=== PATIENT | male | born 1990 | race Caucasian/White ===

== ENCOUNTER 2018-10-05 15:22 | Outpatient (CLI) | payer MEDICAID, SELFPAY ==
[2018-10-05 17:48] LABS: CREATININE 0.98 mg/dL (0.70-1.30); Cholesterol 268 mg/dL (50-200); HDL Cholesterol 31 mg/dL (40-60); LDL CHOLESTEROL 199 mg/dL (<100); Triglyceride 245 mg/dL (30-150)
[2018-10-05 19:15] LABS: Hemoglobin A1C 11.3 % (4.5-6.2)
[2018-10-20 12:20] LABS: ZnT8 Antibodies <15.0 U/mL (<15.0)
== END 2018-10-05 15:42 ==
PROVIDERS: PCP Family Medicine; Visit Provider Family Medicine
DX: E10.9 Type 1 diabetes mellitus without complications (principal)
CPT/HCPCS: 36415; 80061; 83721; 86337; 86341; 82565; 83036

== ENCOUNTER 2018-11-13 15:18 | Outpatient (CLI) | payer MEDICAID, SELFPAY ==
[2018-11-13 16:03] LABS: Cholesterol 263 mg/dL (50-200); HDL Cholesterol 37 mg/dL (40-60); LDL CHOLESTEROL 187 mg/dL (<100); Triglyceride 233 mg/dL (30-150)
== END 2018-11-13 15:38 ==
PROVIDERS: PCP Family Medicine; Visit Provider Family Medicine
DX: E78.5 Hyperlipidemia, unspecified (principal)
CPT/HCPCS: 36415; 80061; 83721

== ENCOUNTER 2019-02-10 08:47 | Outpatient (CLI) | payer MEDICAID, SELFPAY ==
[2019-02-10 11:05] LABS: CREATININE 1.07 mg/dL (0.70-1.30)
[2019-02-10 11:31] LABS: Hemoglobin A1C 6.2 % (4.5-6.2)
[2019-02-10 12:38] LABS: COMMENT (LAB VIEW ONLY) 216.32 mg/dL; Microalb ug/mg Crea 9.3 ug/mg Cr
== END 2019-02-10 09:07 ==
PROVIDERS: PCP Family Medicine; Visit Provider Family Medicine
DX: R35.0 Frequency of micturition (principal); E11.9 Type 2 diabetes mellitus without complications
CPT/HCPCS: 36415; 82043; 82565; 82570; 83036

== ENCOUNTER 2019-02-17 14:45 | Outpatient (CLI) | payer MEDICAID, SELFPAY ==
--- NOTE | 2019-02-17 15:29 | DI.US_ITS ---
SYMPTOMS/DIAGNOSIS: URINARY FREQUENCY, R35.0 RENAL ULTRASOUND: The left kidney measures 13.6 cm in length. The right kidney measures 12.5 cm in length. There is no evidence of hydronephrosis, mass or nephrolithiasis. The prevoid bladder volume measured 171 cc's. There is no postvoid residual. Both ureteral jets were visualized. The bladder appeared normal. The prostate is normal in size. IMPRESSION: Negative renal ultrasound.
== END 2019-02-17 15:05 ==
PROVIDERS: PCP Family Medicine; Visit Provider Family Medicine
DX: R35.0 Frequency of micturition (principal)
CPT/HCPCS: 76770

== ENCOUNTER 2019-05-11 08:44 | Outpatient (CLI) | payer MEDICAID, SELFPAY ==
[2019-05-11 11:27] LABS: Calculated LDL 82; Cholesterol 143 mg/dL (50-200); HDL Cholesterol 38 mg/dL (40-60); Triglyceride 115 mg/dL (30-150)
[2019-05-11 12:13] LABS: Hemoglobin A1C 6.2 % (4.5-6.2)
== END 2019-05-11 09:04 ==
PROVIDERS: PCP Family Medicine; Visit Provider Family Medicine
DX: E11.9 Type 2 diabetes mellitus without complications (principal)
CPT/HCPCS: 36415; 80061; 83721; 83036

== ENCOUNTER 2019-10-05 10:04 | Outpatient (CLI) | payer MEDICAID, SELFPAY ==
[2019-10-05 12:14] LABS: Hemoglobin A1C 6.6 % (4.5-6.2)
== END 2019-10-05 10:24 ==
PROVIDERS: PCP Family Medicine; Visit Provider Family Medicine
DX: E11.9 Type 2 diabetes mellitus without complications (principal)
CPT/HCPCS: 36415; 83036

== ENCOUNTER 2020-07-06 20:51 | Emergency (ER) | payer MEDICAID, SELFPAY ==
[2020-07-06 20:54] VITALS: BP 151/104; PULSE 112; RESP 16; TEMP 36.4; O2SAT 98
--- NOTE | 2020-07-06 20:55 | ED.GENADUL_ITS ---
Discharge Plan Disposition Patient Disposition: HOME Condition: Good Discharge Details Chief Complaint: RashLesion Clinical Impression: Lump of skin of back Primary Care Provider: Sorin Brown ED Provider: Forrest Chun Home Meds and New Rx's Prescriptions: Continued Lantus Solostar U-100 Insulin 100 unit/mL (3 mL) insulin pen 10 unit SC DAILY Qty: 15 RF: 3 (DME) pen needle, diabetic [1st Tier Unifine Pentips] 31 gauge x 1/4 needle See Dose Instructions .ROUTE .MEDSUPPLY Qty: 100 RF: 3 (DME) blood-glucose meter [Accu-Chek Susanna Plus Meter] misc See Dose Instructions .ROUTE .MEDSUPPLY Qty: 1 RF: 0 (DME) Accu-Chek Susanna Plus test strp strip See Dose Instructions .ROUTE .MEDSUPPLY Qty: 100 RF: 11 (DME) lancets [Accu-Chek Fastclix Lancet Drum] misc See Dose Instructions .ROUTE .MEDSUPPLY Qty: 100 RF: 5 rosuvastatin 10 mg tablet 10 mg PO DAILY Qty: 90 RF: 3 methylphenidate HCl 27 mg tablet extended release 24hr 27 mg PO DAILY MDD 1 tablet Qty: 30 RF: 0 Discharge Instructions Additional Instructions: This would be best addressed by surgery to either biopsy or completely remove the lump. It does not appear to be infected at this point. If you develop fever, uncontrolled sugars, increasing redness/swelling/tenderness you should return to ED. Referrals: [facility] [Provider Group] Discharge Data Discharge Date/Time-TO BE ENTERED AT DEPARTURE: 07/06/20 21:25 Medical Decision Making Patient presenting with lump to the right upper back which he reports has grown significantly in the last few weeks and is now painful. Has been present for years. No associated erythema, warmth, drainage. No fever. Sugars have been well controlled. This does not appear to be infected. It is firm and rubbery not fluctuant. Differential includes cyst versus lymph node, less likely lipoma given consistency. Best to be evaluated and managed by surgery. Patient should return if he develops signs of infection, fever, uncontrolled sugars. Otherwise we will have care management help arrange follow-up with surgery next week. HPI General Mode of arrival: ambulatory . Date/Time Provider Initiated Documentation: 07/06/20 20:55 . Limitations to Documentation: no limitations . Information obtained by: patient . HPI Narrative: Patient presents to ED with a lump in his upper back which has been present for years but in the last few weeks has grown considerably and is hard and painful. He denies fever. Sugars have been under control. There has been no warmth or redness to the area. He reports that a few years ago a friend lanced it for him. It has not been evaluated by a medical provider. Related Data Home Medications Medication Instructions Recorded Confirmed blood sugar diagnostic #100 each 10/04/18 11/11/19 blood-glucose meter #1 each 10/04/18 11/11/19 lancets #100 each 10/05/18 11/11/19 rosuvastatin 10 mg tablet 10 mg PO DAILY #90 tab 01/06/20 07/06/20 insulin glargine 100 unit/mL (3 10 unit SC DAILY #15 ml 01/11/20 07/06/20 mL) subcutaneous pen pen needle, diabetic 31 gauge x #100 each 01/11/20 01/11/2011/27 methylphenidate HCl 27 mg 27 mg PO DAILY #30 tab MDD 1 tablet 06/20/20 07/06/20 tablet,extended release 24 hr Previous Rx's Medication Instructions Recorded blood sugar diagnostic #100 each 10/04/18 blood-glucose meter #1 each 10/04/18 lancets #100 each 10/05/18 rosuvastatin 10 mg tablet 10 mg PO DAILY #90 tab 01/06/20 insulin glargine 100 unit/mL (3 10 unit SC DAILY #15 ml 01/11/20 mL) subcutaneous pen pen needle, diabetic 31 gauge x #100 each 01/11/20/ methylphenidate HCl 27 mg 27 mg PO DAILY #30 tab MDD 1 tablet 06/20/20 tablet,extended release 24 hr Allergies Allergy/AdvReac Type Severity Reaction Status Date / Time venlafaxine [From Effexor] AdvReac Severe nauseated Verified 07/06/20 20:56 hydrocodone bitartrate AdvReac Intermediate VOMITING Unverified 07/06/20 20:56 [From Vicodin] morphine AdvReac Intermediate Nausea Unverified 07/06/20 20:56 Review of Systems Constitutional Constitutional: Denies chills and Denies fever(s) Cardiovascular Cardiovascular: Denies dyspnea Respiratory Respiratory: Denies cough and Denies dyspnea Integumentary/Breasts Skin/Breast: Denies erythema, Denies rash, Denies skin ulcer, Denies sores and Denies wounds [facility] Medical History (Updated 07/06/20 @ 21:37 by Forrest Chun MD) ADHD (attention deficit hyperactivity disorder) (Chronic) Diabetes mellitus (Chronic) Surgical History History of surgical procedure (Acute) TM surgery Family History (Updated 01/11/20 @ 11:45 by Jim Pelayo) Mother Diabetes Father No problems noted. Sister Alcohol abuse Depression Brother Asthma Maternal Grandfather , age 60 Alcohol abuse Cancer Paternal Grandfather Diabetes Maternal Grandmother , age 59 Diabetes Asthma Paternal Grandmother No problems noted. Sister No problems noted. Sister No problems noted. Son No problems noted. Daughter No problems noted. 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 Pets and animals: Yes Pets and animals: cat(s) and dog(s) Sexually active: Yes Do you think of yourself as: straight/heterosexual Current gender identity: male What is your relationship status?: living with partner How often do you talk on the phone with friends or family?: twice per week How often do you get together with friends or relatives?: twice per week How often do you attend confucianist or faith services?: decline to answer Do you belong to any clubs or organized social groups?: yes Panel score (0-1 are the most socially isolated patients): 3 Duration: < 15 minutes/day Frequency: daily Lisa/Confucianism: None Special lisa needs: No Seatbelt use: always Drive intox or ride w/intox horse and wagon driver: No Do you feel safe at home: Yes Do you feel safe in your relationship?: Yes Exam Const General: cooperative, comfortable and no acute distress Orientation: alert and oriented x3 HENMT Head: normocephalic and atraumatic Neck Neck: full ROM, trachea midline and supple Skin General skin exam: no erythema, no fluctuance and no induration Other: Firm, rubbery golf ball size lump right upper back. Mildly tender.
[2020-07-06 20:57] VITALS: BP 138/93
--- NOTE | 2020-07-06 21:09 | NUR.NOTE ---
Nursing Note: rerferal given to cm to follow up with surgery ana dixon
--- NOTE | 2020-07-10 10:25 | PDOC.ERCMPRO ---
- If Service Date Differs Date of service: 07/10/20 Time of Service: 10:25 Care Management Progress Note At the request of ED provider, CM coordinates referral to [facility] General Surgery.
== END 2020-07-06 21:25 | disposition home or self-care (01) ==
PROVIDERS: Emergency Provider Emergency Medicine; PCP Family Medicine
DX: R22.2 Localized swelling, mass and lump, trunk (principal); E11.9 Type 2 diabetes mellitus without complications; Z79.4 Long term (current) use of insulin
CPT/HCPCS: 36416; 82962; 99282; 99283

== ENCOUNTER 2020-07-11 08:49 | Outpatient (CLI) | payer MEDICAID, SELFPAY ==
[2020-07-11 12:45] LABS: COMMENT (LAB VIEW ONLY) 190.64 mg/dL; Microalb ug/mg Crea 11.6 ug/mg Cr
[2020-07-11 12:49] LABS: CREATININE 0.99 mg/dL (0.70-1.30); Calculated LDL 109 mg/dL (<100); Cholesterol 178 mg/dL (<200); HDL Cholesterol 40 mg/dL (40-60); Triglyceride 148 mg/dL (<150)
[2020-07-11 14:32] LABS: Hemoglobin A1C 6.3 % (3.8-5.6)
== END 2020-07-11 09:09 ==
PROVIDERS: PCP Family Medicine; Visit Provider Family Medicine
DX: E11.9 Type 2 diabetes mellitus without complications (principal); E78.5 Hyperlipidemia, unspecified; R73.9 Hyperglycemia, unspecified
CPT/HCPCS: 36415; 80061; 82043; 82565; 82570; 83036

== ENCOUNTER 2021-11-14 13:31 | Outpatient (REF) | payer MEDICAID, SELFPAY ==
[2021-11-15 16:00] LABS: COVID-19 RT-PCR UVMMC Result Negative (Negative)
== END 2021-11-14 13:32 | disposition home or self-care (01) ==
LOC: LBN 13:31
PROVIDERS: PCP Family Medicine; Visit Provider Family Medicine
DX: Z20.822 Contact with and (suspected) exposure to COVID-19 (principal)
CPT/HCPCS: U0003

== ENCOUNTER 2022-07-13 16:18 | Emergency (ER) | payer MEDICAID, SELFPAY ==
[2022-07-13 16:22] VITALS: BP 142/92; PULSE 115; RESP 18; TEMP 38.4; O2SAT 99
[2022-07-13 16:43] LABS: Source Nasal/Nares
[2022-07-13] MEDS: Ibuprofen 600 MG TAB PO (16:45)
[2022-07-13 17:20] LABS: COVID-19 PCR Negative (Negative)
--- NOTE | 2022-07-13 18:11 | ED.GENADUL_ITS ---
Discharge Plan Disposition Patient Disposition: HOME Condition: Stable Discharge Details Clinical Impression: URI (upper respiratory infection), Pharyngitis Primary Care Provider: Sorin Brown ED Provider: Jenna Thornton Meds and New Rx's Prescriptions: New amoxicillin-pot clavulanate 875-125 mg tablet 1 tab PO BID 7 Days Qty: 14 0RF Rx Instructions: Take one tablet twice daily x 7 days Continued Lantus Solostar U-100 Insulin 100 unit/mL (3 mL) insulin pen 10 unit SC DAILY Qty: 15 3RF benzonatate [Tessalon Perles] 100 mg capsule 100 mg PO TID PRN (Reason: cough) Qty: 14 0RF albuterol sulfate [Proventil HFA] 90 mcg/actuation HFA aerosol inhaler 2 puff inhalation Q6H PRN (Reason: shortness of breath or wheezing) Qty: 8.5 0RF (DME) blood-glucose meter [Accu-Chek Susanna Plus Meter] misc See Dose Instructions .ROUTE .MEDSUPPLY Qty: 1 0RF Dose Instruction: As directed Rx Instructions: test 2-3 x/day (DME) Accu-Chek Susanna Plus test strp strip See Dose Instructions .ROUTE .MEDSUPPLY Qty: 100 11RF Dose Instruction: As directed Rx Instructions: test 2-3 x/day (DME) lancets [Accu-Chek Fastclix Lancet Drum] misc See Dose Instructions .ROUTE .MEDSUPPLY Qty: 100 5RF Dose Instruction: As directed Rx Instructions: 1-3 times/day rosuvastatin 10 mg tablet 10 mg PO DAILY Qty: 90 3RF (DME) pen needle, diabetic [1st Tier Unifine Pentips] 31 gauge x 1/4 needle See Dose Instructions .ROUTE .MEDSUPPLY Qty: 100 3RF Dose Instruction: As directed Rx Instructions: one injection daily Discharge Instructions Instructions: Pharyngitis (ED), Upper Respiratory Infection (ED) Additional Instructions: Take the antibiotic twice daily with yogurt for 7 days. Gargle with warm salt water 3 times daily. Please take Tylenol or Ibuprofen with food every 4-6 hours as needed for pain and swelling. Follow up with primary care provider in 3-5 days. Return to ED sooner if any worsening or concerns. Increase oral fluids. Referrals: Sorin Brown MD [Primary Care Provider] - 1 week Discharge Data Discharge Date/Time-TO BE ENTERED AT DEPARTURE: 07/13/22 18:35 HPI General Mode of arrival: ambulatory . Date/Time Provider Initiated Documentation: 07/13/22 16:18 . Limitations to Documentation: no limitations . Information obtained by: patient, RN notes reviewed and old records reviewed . HPI Narrative: 55-bjlg-teo-year-old male presents to the ER with chief complaint of fever, sore throat body ache which began this morning. Does have a past medical history of diabetes, obesity and ADHD. States she has been taking a lot of Tylenol today. Denies any cough or any other associated symptoms. Denies any abdominal pain nausea vomiting diarrhea. Related Data Home Medications Medication Instructions Recorded Confirmed blood sugar diagnostic (Accu-Chek #100 ea 10/04/18 05/01/22 Susanna Plus test strips) blood-glucose meter (Accu-Chek #1 ea 10/04/18 05/01/22 Susanna Plus Meter) lancets (Accu-Chek Fastclix Lancet #100 ea 10/05/18 05/01/22 Drum) insulin glargine 100 unit/mL (3 10 unit (0.1 mL) subcut DAILY #15 07/11/20 05/01/22 mL) subcutaneous pen (Lantus mL Solostar U-100 Insulin) rosuvastatin 10 mg tablet 10 mg PO DAILY #90 tabs 09/25/20 05/01/22 pen needle, diabetic 31 gauge x #100 ea 08/02/21 05/01/22/ (1st Tier Unifine Pentips) albuterol sulfate 90 mcg/actuation 2 puff inhalation Q6H PRN 05/01/22 07/13/22 aerosol inhaler (Proventil HFA) shortness of breath or wheezing #8.5 grams benzonatate 100 mg capsule 100 mg PO TID PRN cough #14 caps 05/01/22 05/01/22 (Jb Nieto) amoxicillin 875 mg-potassium 1 tab PO BID 7 days #14 tabs 07/13/22 clavulanate 125 mg tablet Previous Rx's Medication Instructions Recorded blood sugar diagnostic (Accu-Chek #100 ea 10/04/18 Susanna Plus test strips) blood-glucose meter (Accu-Chek #1 ea 10/04/18 Susanna Plus Meter) lancets (Accu-Chek Fastclix Lancet #100 ea 10/05/18 Drum) insulin glargine 100 unit/mL (3 10 unit (0.1 mL) subcut DAILY #15 07/11/20 mL) subcutaneous pen (Lantus mL Solostar U-100 Insulin) rosuvastatin 10 mg tablet 10 mg PO DAILY #90 tabs 09/25/20 pen needle, diabetic 31 gauge x #100 ea 08/02/2111/27 (1st Tier Unifine Pentips) albuterol sulfate 90 mcg/actuation 2 puff inhalation Q6H PRN 05/01/22 aerosol inhaler (Proventil HFA) shortness of breath or wheezing #8.5 grams benzonatate 100 mg capsule 100 mg PO TID PRN cough #14 caps 05/01/22 (Tesarturo Nieto) amoxicillin 875 mg-potassium 1 tab PO BID 7 days #14 tabs 07/13/22 clavulanate 125 mg tablet Allergies Allergy/AdvReac Type Severity Reaction Status Date / Time venlafaxine [From Effexor] AdvReac Severe nauseated Verified 05/01/22 15:41 hydrocodone bitartrate AdvReac Intermediate VOMITING Verified 05/01/22 15:41 [From Vicodin] morphine AdvReac Intermediate Nausea Verified 05/01/22 15:41 General Stated Complaint: RespSymp AMAN: 3 Review of Systems All systems reviewed & are unremarkable except as noted in HPI and below Constitutional Constitutional: Reports as per HPI, Reports body ache(s), Reports fatigue and Reports fever(s) ENT Ears, Nose, Mouth, and Throat: Reports sore throat Endocrine Endocrine: Reports fatigue PFSH All Active Problems (Updated 07/13/22 @ 18:15 by Jenna Thornton NP) Pharyngitis (Acute) URI (upper respiratory infection) (Acute) Infected sebaceous cyst (Acute) Bilateral foot pain (Acute) Depression (Chronic) add effexor follow up in one month Diabetes 1.5, 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 Sister Alcohol abuse Depression Brother Asthma Maternal Grandfather , age 60 Alcohol abuse Cancer Paternal Grandfather Diabetes Maternal Grandmother , age 59 Diabetes Asthma Paternal Grandmother No problems noted. Sister No problems noted. Sister No problems noted. Son No problems noted. Daughter No problems noted. 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 Pets and animals: Yes Pets and animals: cat(s) and dog(s) Sexually active: Yes Do you think of yourself as: straight/heterosexual Current gender identity: male What is your relationship status?: living with partner How often do you talk on the phone with friends or family?: twice per week How often do you get together with friends or relatives?: twice per week How often do you attend orthodoxy or tenriism services?: decline to answer Do you belong to any clubs or organized social groups?: yes Panel score (0-1 are the most socially isolated patients): 3 Duration: < 15 minutes/day Frequency: does not exercise Lisa/Anglican: No preference Special lisa needs: No Seatbelt use: always Drive intox or ride w/intox front end loader driver: No Do you feel safe at home: Yes Do you feel safe in your relationship?: Yes Exam Narrative Exam Narrative: Constitutional: Alert and oriented x3. Appears stated age. Normal body habitus. Head: Normocephalic, no trauma. Eyes: Pupils PERRL, Red reflex noted, EOM's intact. Eyelids symmetrical without lesions, discharge, or swelling. ENT: Bilateral TM's WNL, External ear normal to inspection, no mastoid TTP, swelling, or erythema, Nasal turbinates WNL, no nasal discharge. Normal dentition, Posterior pharynx erythemic, no exudate. Chest: RRR, Normal S1, S2, distal pulses intact. Resp: Lungs clear to auscultation bilaterally, no wheezes, rales, or rhonchi. Abdomen: Soft, non-distended, Normoactive bowel sounds all 4 quads. Musculoskeletal: Normal gait, 5/5 strength to all four extremities. Skin: No suspicious rashes or lesions. Capillary refill less than 2 sec. Neurologic: Cranial nerves II-XII intact. Alert and oriented x 3. Motor: No deficits noted. Sensory: Intact bilaterally all 4 extremities. Reflexes: DTR's intact bilaterally.. Hematologic/Lymphatic: No ecchymosis, no lymphadenopathy. Course Vital Signs Vital signs: Vital Signs Temperature 38.4 C H 07/13/22 16:22 Pulse 115 H 07/13/22 16:22 Respiratory Rate 18 07/13/22 16:22 Blood Pressure 142/92 H 07/13/22 16:22 Pulse Oximetry 99 07/13/22 16:22 Temperature 38.4 C H 07/13/22 16:22 Temperature Source Oral 07/13/22 16:22 Pulse 115 H 07/13/22 16:22 Respiratory Rate 18 07/13/22 16:22 Respiratory Effort Non-Labored 07/13/22 16:40 Blood Pressure 142/92 H 07/13/22 16:22 Blood Pressure Position Sitting 07/13/22 16:22 Pulse Oximetry 99 07/13/22 16:22 Oxygen Delivery Method Room Air 07/13/22 16:22 Oxygen Flow Rate 0 07/13/22 16:22 Lab/Test Results Lab/Test Results: 07/13/22 16:35 Pharynx Group A Streptococcus Culture - Pending Laboratory Tests Range/Units 07/13/22 16:30 COVID-19 Source Nasal/Nares SARS-CoV-2 (PCR) (Negative) Negative POC Strep Test-RADHA(Rapid) Start: 07/13/22 16:29 Freq: .Rapid Strep Test Status: Active Protocol: Document 07/13/22 16:45 RM (Rec: 07/13/22 16:46 RM [id number]) Strep test-RADHA(Rapid)-POC POC-Strep test-RADHA (Rapid) Negative POC-Strep test-RADHA (Rapid) Negative PAWSS Have you Been Recently Intoxicated or Drunk Within the Last 30 days?: Yes Have you Ever Experienced Previous Episodes of Alcohol Withdrawal?: No Have you ever Experienced Withdrawal Seizures?: No Have you ever Experienced Delirium Tremens(DT)s?: No Have you ever undergone Alcohol Rehabilitation Treatment (i.e, inpt ot outpatient treatment programs)?: No Have you ever Experienced Blackouts?: No Have you ever Combined Alcohol with other Downers within the last 90 days?: No Have you ever Combined Alcohol with any other Substance of Abuse during the last 90 days?: No Positive Blood Alcohol level on Presentation? [PCS.BAL]: No Evidence of Increased Autonomic Activity (i.e. HR>120, tremor, sweating, agitation, nausea)?: No Result: 1
[2022-07-13] MEDS: Amox. 875/Clav. 125, 2 TABS/BTL 1 TAB PO (18:30)
[2022-07-13] MEDS: Amoxicillin 875/Clav. 125 TAB PO (18:30)
== END 2022-07-13 18:35 | disposition home or self-care (01) ==
PROVIDERS: Emergency Provider Registered Nurse Emergency; PCP Family Medicine
DX: J02.9 Acute pharyngitis, unspecified (principal); E11.9 Type 2 diabetes mellitus without complications; Z20.822 Contact with and (suspected) exposure to COVID-19
CPT/HCPCS: 87635; 87880; 99283; 87081; 99284

== ENCOUNTER 2022-10-10 03:31 | Outpatient (CLI) | payer MEDICAID, SELFPAY ==
[2022-10-10 13:01] LABS: Calculated LDL 172 mg/dL (<100); Cholesterol 238 mg/dL (<200); HDL Cholesterol 48 mg/dL (40-60); Triglyceride 91 mg/dL (<150)
== END 2022-10-10 03:32 | disposition home or self-care (01) ==
LOC: LBO 03:31
PROVIDERS: PCP Family Medicine; Visit Provider Family Medicine
DX: E78.5 Hyperlipidemia, unspecified (principal)
CPT/HCPCS: 36415; 80061

== ENCOUNTER 2022-10-29 13:38 | Outpatient (REF) | payer MEDICAID, SELFPAY ==
[2022-10-29 14:27] LABS: COMMENT (LAB VIEW ONLY) 344.57 mg/dL; Microalb ug/mg Crea 16.7 ug/mg Cr
== END 2022-10-29 13:39 | disposition home or self-care (01) ==
LOC: LBN 13:38
PROVIDERS: PCP Family Medicine; Visit Provider Family Medicine
DX: E11.9 Type 2 diabetes mellitus without complications (principal)
CPT/HCPCS: 82043; 82570

== ENCOUNTER → 2023-12-19 01:01 | Outpatient (CLI) | payer MEDICAID, SELFPAY ==
--- NOTE | 2023-12-19 07:15 | DI.US_ITS ---
Exam(s) US ABDOMEN LIMITED EXAM: US ABDOMEN LIMITED CLINICAL HISTORY: ruq ABD PAIN,R10.9 TECHNIQUE: Ultrasound abdomen performed using standard protocol. COMPARISON: US US renal from 02/17/2019 FINDINGS: PANCREAS: Normal where visualized. LIVER: There is diffuse increased echogenicity of the liver consistent with fatty infiltration. The portal vein could not be seen on this examination due to patient body habitus. The liver measures in 17.1 cm length. GALLBLADDER: No evidence of cholelithiasis. No evidence of wall thickening. No pericholecystic fluid identified. BILIARY SYSTEM: Common bile duct measures < 7 mm. No intrahepatic biliary ductal dilation. MCHUGH'S SIGN: Negative. RIGHT KIDNEY: Kidney is normal in size. No evidence of renal calculi. No evidence of hydronephrosis. No renal mass or cyst identified. ASCITES: None seen. IMPRESSION: 1. Examination limited by patient body habitus. 2. Fatty infiltration and mild hepatomegaly. DATA REPOSITORY:
== END ==
PROVIDERS: PCP Family Medicine; Visit Provider Family Medicine
DX: R16.0 Hepatomegaly, not elsewhere classified
CPT/HCPCS: 76705

== ENCOUNTER 2024-07-29 15:32 | Emergency (ER) | payer SELFPAY ==
[2024-07-29 15:41] VITALS: BP 145/99; PULSE 85; RESP 20; TEMP 37.1; O2SAT 96
--- NOTE | 2024-07-29 15:46 | ED.GENADUL_ITS ---
Discharge Plan Disposition Patient Disposition: Home Condition: Stable Discharge Details Clinical Impression: Cervical radiculopathy Primary Care Provider: Sorin Brown ED Provider: Kj Marshall Home Meds and New Rx's Prescriptions: New ketorolac 10 mg tablet 10 mg PO QID PRN5 Days Qty: 20 0RF Rx Instructions: maximum total duration of 5 days from all oral, intranasal, or parenteral formulations methocarbamol 750 mg tablet 750 mg PO QID Qty: 30 0RF diclofenac sodium 1 % gel 2 g topical QID Qty: 100 0RF Rx Instructions: apply to single elbow, wrist or hand; for hand includes palm/fingers/back of hand Continued rosuvastatin 10 mg tablet 10 mg PO DAILY Qty: 90 3RF (DME) lancets [Accu-Chek Fastclix Lancet Drum] Misc See Dose Instructions .ROUTE .MEDSUPPLY Qty: 100 5RF Dose Instruction: As directed Rx Instructions: 1-3 times/day (DME) blood-glucose meter Misc See Dose Instructions .ROUTE .MEDSUPPLY Qty: 1 0RF Dose Instruction: As directed Rx Instructions: test 2-3 x/day (DME) Accu-Chek Susanna Plus test strp Strip See Dose Instructions .ROUTE .MEDSUPPLY Qty: 100 11RF Dose Instruction: As directed Rx Instructions: test 2-3 x/day semaglutide 1 mg/dose (4 mg/3 mL) pen injector 1 mg subcut QWEEK MDD 1.0 mg 28 Days Qty: 3 12RF Rx Instructions: Inject 1.0 mg subcutaneously once weekly as directed, titrate as directed. trazodone 50 mg tablet 50 mg PO DAILY Qty: 30 3RF methylphenidate HCl 18 mg tablet extended release 24hr 18 mg PO DAILY MDD 1 tab Qty: 28 0RF Rx Instructions: Take 1 tablet once a day in the AM Ozempic 0.25 mg or 0.5 mg (2 mg/3 mL) pen injector 0.25 mg subcut QWEEK MDD 0.5 mg 28 Days Qty: 3 3RF Rx Instructions: Inject 0.25 mg subcutaneously once weekly as directed. (DME) pen needle, diabetic [1st Tier Unifine Pentips] 31 gauge x 1/4 needle See Dose Instructions .ROUTE .MEDSUPPLY Qty: 100 3RF Dose Instruction: As directed Rx Instructions: one injection daily Discharge Instructions Instructions: Diclofenac (Topical), Ketorolac (Systemic), Methocarbamol, Radiculopathy of the neck and back (including sciatica) Additional Instructions: You were seen in the emergency department for your neck and low back pain this is likely a minor disc herniation causing a pinched nerve possibly due to muscle spasm from neck strain. You had some neuropathy in the ulnar nerve distribution of your right arm which is resolving. I have sent a prescription for an anti- inflammatory medicine called ketorolac to [facility] in [place], please take this for 5 days-do not take this medicine with Aleve or Advil, once you run out switch your anti-inflammatory dosing to, no [id number] like Aleve or Advil. Take 1000 mg of Tylenol every 6 hours like clockwork for 4 to 5 days before reevaluating without this medicine. Take the prescribed methocarbamol which is a skeletal muscle relaxer for 5 to 7 days and then reevaluate your condition. Apply the topical diclofenac gel to the area for topical anti-inflammatory effects. Apply gentle heat and gentle massage to the area. Once you establish PCP care you may need a referral for an outpatient MRI of the cervical spine, please return to the ED for more urgent concerns like complete numbness or inability to move or weakness of the right arm, this may be presenting as dropping objects and lack of coordination, please return for any complete urinary retention, bowel incontinence without noticing in your pants, groin numbness, visual changes, vertigo. Referrals: Sorin Brown MD [Primary Care Provider] - Discharge Data Discharge Date/Time-TO BE ENTERED AT DEPARTURE: 07/29/24 17:57 HPI General Date/Time Provider Initiated Documentation: 07/29/24 15:45 . HPI Narrative: 33 year-old male presents to ED today by POV/ambulating with a chief complaint of neck pain when in flexion, shooting to his lower back, and ulnar neuropathy of R hand that has lasted most of the day today after a rough jiu jitsu practice on 07/27. Quality described as has old neck injuries, feels stiffer than usual, no radiation to complete numbness of R hand, dizziness, vertigo, pulsatile tinnitus, weakness, urinary retention, bowel incontinence, groin numbness. Severity is described as moderate. Palliating factors include nothing specific attempted. Provoking factors include neck flexion. Patient not anticoagulated. Related Data Home Medications ?Medication ?Instructions ?Recorded ?Confirmed pen needle, diabetic 31 gauge x #100 ea 08/02/21 06/23/2411/27 (1st Tier Unifine Pentips) rosuvastatin 10 mg tablet 10 mg PO DAILY #90 tabs 06/04/23 06/23/24 trazodone 50 mg tablet 50 mg PO DAILY #30 tabs 12/16/23 06/23/24 blood sugar diagnostic (Accu-Chek #100 ea 12/17/23 06/23/24 Susanna Plus test strips) blood-glucose meter #1 ea 12/17/23 06/23/24 lancets (Accu-Chek Fastclix Lancet #100 ea 12/17/23 06/23/24 Drum) semaglutide 0.25 mg or 0.5 mg (2 0.25 mg (0.368 mL) subcut QWEEK 28 12/31/23 06/23/24 mg/3 mL) subcutaneous pen injector days #3 mL (Ozempic) methylphenidate HCl 18 mg 18 mg PO DAILY #28 tabs 03/18/24 06/23/24 tablet,extended release 24 hr semaglutide 1 mg/dose (4 mg/3 mL) 1 mg (0.75 mL) subcut QWEEK 28 03/18/24 06/23/24 subcutaneous pen injector days #3 mL diclofenac sodium 1 % topical gel 2 g topical QID #100 grams 07/29/24 ketorolac 10 mg tablet 10 mg PO QID PRN 5 days #20 tabs 07/29/24 methocarbamol 750 mg tablet 750 mg PO QID #30 tabs 07/29/24 Previous Rx's ?Medication ?Instructions ?Recorded pen needle, diabetic 31 gauge x #100 ea 08/02/2111/27 (1st Tier Unifine Pentips) rosuvastatin 10 mg tablet 10 mg PO DAILY #90 tabs 06/04/23 trazodone 50 mg tablet 50 mg PO DAILY #30 tabs 12/16/23 blood sugar diagnostic (Accu-Chek #100 ea 12/17/23 Susanna Plus test strips) blood-glucose meter #1 ea 12/17/23 lancets (Accu-Chek Fastclix Lancet #100 ea 12/17/23 Drum) semaglutide 0.25 mg or 0.5 mg (2 0.25 mg (0.368 mL) subcut QWEEK 28 12/31/23 mg/3 mL) subcutaneous pen injector days #3 mL (Ozempic) methylphenidate HCl 18 mg 18 mg PO DAILY #28 tabs 03/18/24 tablet,extended release 24 hr semaglutide 1 mg/dose (4 mg/3 mL) 1 mg (0.75 mL) subcut QWEEK 28 03/18/24 subcutaneous pen injector days #3 mL diclofenac sodium 1 % topical gel 2 g topical QID #100 grams 07/29/24 ketorolac 10 mg tablet 10 mg PO QID PRN 5 days #20 tabs 07/29/24 methocarbamol 750 mg tablet 750 mg PO QID #30 tabs 07/29/24 Allergies Allergy/AdvReac Type Severity Reaction Status Date / Time venlafaxine (From Effexor) AdvReac Severe nauseated Verified 12/23/23 08:08 hydrocodone bitartrate (From AdvReac Intermediate VOMITING Verified 12/23/23 08:08 Vicodin) morphine AdvReac Intermediate Nausea Verified 12/23/23 08:08 General Stated Complaint: Nk/Back Pain AMAN: 3 Review of Systems All systems reviewed & are unremarkable except as noted in HPI and below Exam Narrative Exam Narrative: GENERAL APPEARANCE: Well-nourished, non-toxic, awake and alert, atraumatic, no acute distress. SKIN: Warm, pink, dry, intact, without rashes/lesions/ulcerations. HEAD: Normocephalic, atraumatic, normal hair distribution for gender/age. EYES: Normal conjunctiva, no exudates on lids/lashes. ENT: Nares patent, no circumoral cyanosis, no facial swelling NECK: Supple, trachea midline, full cervical ROM, mild pain with neck flexion. LUNGS/CHEST: Non-labored respirations, normal A/P diameter, symmetrical expansion, no chest wall deformity HEART (CV/PV): Regular rate, no peripheral edema, no JVD. ABDOMEN: Soft, non-distended, no guarding. MSK: Normal ROM, no swelling/deformity to bilateral UEs or LEs, moving all extremities without weakness, no cyanosis, spine midline without tenderness, normal curvature, no weakness of either upper extremity, strength 5/5 and symmetric, right radial pulse 2+, sensation intact to light and sharp palpation of her right hand, brisk capillary refill, no midline cervical tenderness, no other spinal midline tenderness/crepitus/step-offs NEURO: Mental Status AAOx4 - alert to person, place, time, events No facial droop, no forehead involvement. Motor: No focal weakness - strength 5/5 in bilateral UEs and LEs, proximal and distal, symmetric. Sensory: sensation intact to light touch globally. Gait normal: patient ambulated without ataxia into ED room. PSYCH: euthymic, cooperative, pleasant, appropriate speech Course Vital Signs Vital signs: Vital Signs Temperature 37.1 C 07/29/24 15:41 Pulse 85 07/29/24 15:41 Respiratory Rate 20 07/29/24 15:41 Blood Pressure 145/99 H 07/29/24 15:41 Pulse Oximetry 96 07/29/24 15:41 Temperature 37.1 C 07/29/24 15:41 Pulse 85 07/29/24 15:41 Respiratory Rate 20 07/29/24 15:41 Blood Pressure 145/99 H 07/29/24 15:41 Blood Pressure Position Sitting 07/29/24 15:41 Pulse Oximetry 96 07/29/24 15:41 Oxygen Delivery Method Room Air 07/29/24 15:41 Oxygen Flow Rate 0 07/29/24 15:41 Pain Level 0 07/29/24 15:41 Medical Decision Making This dictation utilizes [id number] dictation software and may contain unedited grammatical errors. 33 year-old male presents to ED today by POV/ambulating with a chief complaint of neck pain when in flexion, shooting to his lower back, and ulnar neuropathy of R hand that has lasted most of the day today after a rough jiu jitsu practice on 07/27. Quality described as has old neck injuries, feels stiffer than usual, no radiation to complete numbness of R hand, dizziness, vertigo, pulsatile tinnitus, weakness, urinary retention, bowel incontinence, groin numbness. Severity is described as moderate. Palliating factors include nothing specific attempted. Provoking factors include neck flexion. Patients' medical history: Diabetes mellitus, history of bilateral hand numbness. Family and social history: Noncontributory eats healthy diet, exercises regularly, no illicit drug use. Pertinent exam findings / vital signs include no weakness of either upper extremity, strength 5/5 and symmetric, right radial pulse 2+, sensation intact to light and sharp palpation of her right hand, brisk capillary refill, no midline cervical tenderness, no other spinal midline tenderness/crepitus/step- offs. Differential / pathologies of concern include cervical radiculopathy, muscle st rain or sprain, unlikely neurovascular compromise, not cauda equina syndrome. Diagnostic studies of: -CT of the cervical/thoracic/lumbar spine without contrast. -No acute findings Interventions of: -Providing a prescription for 5 days of Toradol and methocarbamol for skeletal muscle relaxation recommend [id number] Voltaren gel as well as therapeutic dosing of Tylenol and gentle heat to the area, recommend outpatient follow-up and continue with his community connections PCP pursuit for possible MRIs without improvement, strict return care for neurovascular compromise. Findings not consistent with cauda equina, neurovascular compromise, vertebral fracture. Disposition of cervical radiculopathy. Patient verbalized understanding of the plan and return to ED criteria and [facility] ed in shared decision making. Medical Records Medical records reviewed: Yes I reviewed the patient's medical records. Imaging Data Radiologic Study: Attestation: I personally reviewed and interpreted this imaging study as follows: Imaging: CT Scan Radiologist's impression: EXAM: CT CERVICAL SPINE WO CLINICAL HISTORY: neck, low back pain, R ulnar neuropathy. TECHNIQUE: Imaging Protocol: Axial computed tomography images with coronal and sagittal reformatted images were created and reviewed COMPARISON: No exams were available for comparison FINDINGS: CERVICAL SPINE: There is no evidence of acute fracture. No significant prevertebral soft tissue swelling. No significant listhesis. Facet arthropathy evident but no significant facet joint malalignment. No significant osseous lesions evident. IMPRESSION: No evidence of cervical spine fracture, malalignment, nor acute compromise of the cervical spinal canal. Radiologic Study #2: Attestation: I personally reviewed and interpreted this imaging study as follows: Imaging: CT Scan Radiologist's impression: EXAM: CT THORACIC LUMBAR SPINE WO CLINICAL HISTORY: neck, low back pain, R ulnar neuropathy. TECHNIQUE: Imaging Protocol: Axial computed tomography images with coronal and sagittal reformatted images were created and reviewed. CONTRAST MATERIAL: Intravenous: None COMPARISON: No exams were available for comparison FINDINGS: THORACIC SPINAL COLUMN: No evidence of acute fracture or listhesis. No facet joint malalignment. No acute compromise of the osseous spinal canal. No scoliosis evident. No significant osseous lesions in the thoracic vertebrae. Some vacuum phenomena seen within the anterior aspect of the disc spaces in the lower thoracic spinal column. LUMBOSACRAL SPINAL COLUMN: No evidence of fracture, listhesis, nor pars defects. No disc space narrowing. No obvious disc herniations. No central spinal canal stenosis nor foraminal stenosis evident. No facet arthropathy nor facet joint malalignment. No scoliosis. Visualized sacroiliac joints appear unremarkable. Paraspinal musculature appears unremarkable. IMPRESSION: No significant acute findings on CT scans of the thoracic and lumbar spinal columns. If clinically indicated follow-up MRI can be performed. 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 Sister Alcohol abuse Depression Brother Asthma Maternal Grandfather , age 60 Alcohol abuse Cancer Paternal Grandfather Diabetes Maternal Grandmother , age 59 Diabetes Asthma Paternal Grandmother No problems noted. Sister No problems noted. Sister No problems noted. Son No problems noted. Daughter No problems noted. 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 Pets and animals: Yes Pets and animals: cat(s) and dog(s) Sexually active: Yes Do you think of yourself as: straight/heterosexual Current gender identity: male What is your relationship status?: living with partner How often do you talk on the phone with friends or family?: twice per week How often do you get together with friends or relatives?: twice per week How often do you attend lutheran or hoahaoism services?: decline to answer Do you belong to any clubs or organized social groups?: yes Panel score (0-1 are the most socially isolated patients): 3 Duration: < 15 minutes/day Frequency: daily Lisa/Spiritism: None Special lisa needs: No Seatbelt use: always 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
--- NOTE | 2024-07-29 17:10 | DI.CT_ITS ---
Exam(s) CT CERVICAL SPINE WO EXAM: CT CERVICAL SPINE WO CLINICAL HISTORY: neck, low back pain, R ulnar neuropathy. TECHNIQUE: Imaging Protocol: Axial computed tomography images with coronal and sagittal reformatted images were created and reviewed COMPARISON: No exams were available for comparison FINDINGS: CERVICAL SPINE: There is no evidence of acute fracture. No significant prevertebral soft tissue swelling. No significant listhesis. Facet arthropathy evident but no significant facet joint malalignment. No significant osseous lesions evident. IMPRESSION: No evidence of cervical spine fracture, malalignment, nor acute compromise of the cervical spinal can al. RADIATION DOSE DELIVERED: 752.23mGy.cm Total DLP DATA REPOSITORY: All CT scans at this facility are submitted to the National Radiology Data Registry (NRDR) Dose Index Registry (DIR) with the [employer] ([employer]). RADIATION OPTIMIZATION: All CT scans at this facility use at least one of these dose optimization te chniques: automated exposure control; mA and/or kV adjustment per patient size (includes targeted exa ms where dose is matched to clinical indication); or iterative reconstruction.
--- NOTE | 2024-07-29 17:10 | DI.CT_ITS ---
Exam(s) CT THORACIC LUMBAR SPINE WO EXAM: CT THORACIC LUMBAR SPINE WO CLINICAL HISTORY: neck, low back pain, R ulnar neuropathy. TECHNIQUE: Imaging Protocol: Axial computed tomography images with coronal and sagittal reformatted images were created and reviewed. CONTRAST MATERIAL: Intravenous: None COMPARISON: No exams were available for comparison FINDINGS: THORACIC SPINAL COLUMN: No evidence of acute fracture or listhesis. No facet joint malalignment. No acute compromise of the osseous spinal canal. No scoliosis evident. No significant osseous lesions in the thoracic vertebr ae. Some vacuum phenomena seen within the anterior aspect of the disc spaces in the lower thoracic s [place] column. LUMBOSACRAL SPINAL COLUMN: No evidence of fracture, listhesis, nor pars defects. No disc space narrowing. No obvious disc sergei iations. No central spinal canal stenosis nor foraminal stenosis evident. No facet arthropathy nor facet joint malalignment. No scoliosis. Visualized sacroiliac joints appear unremarkable. Paraspin al musculature appears unremarkable. IMPRESSION: No significant acute findings on CT scans of the thoracic and lumbar spinal columns. If clinically i ndicated follow-up MRI can be performed. Report called by myself to ER 07/29/2024 at 5:25 p.m. RADIATION DOSE DELIVERED: 2,637.73mGy.cm Total DLP DATA REPOSITORY: All CT scans at this facility are submitted to the National Radiology Data Registry (NRDR) Dose Index Registry (DIR) with the [employer] ([employer]). RADIATION OPTIMIZATION: All CT scans at this facility use at least one of these dose optimization te chniques: automated exposure control; mA and/or kV adjustment per patient size (includes targeted exa ms where dose is matched to clinical indication); or iterative reconstruction.
[2024-07-29 17:57] VITALS: BP 133/98; PULSE 92; RESP 18; O2SAT 92
== END 2024-07-29 17:57 | disposition home or self-care (01) ==
PROVIDERS: Emergency Provider Physician Assistant; PCP Family Medicine
DX: M54.12 Radiculopathy, cervical region (principal); M54.50 Low back pain, unspecified
CPT/HCPCS: 99284; 72125; 72128; 72131; 99283